=== PATIENT | female | born 1970 | race Caucasian/White ===

== ENCOUNTER 2025-06-16 09:15 | Outpatient (REF) | payer BC, SELFPAY ==
--- NOTE | ~2025-06-16 | XR_ITS ---
EXAMINATION: XR CHEST CLINICAL INFORMATION: R06.02 - Shortness of breath COMPARISON: None available. TECHNIQUE: 2 views of the chest were obtained. FINDINGS: The cardiomediastinal silhouette is within normal limits. The lungs are well expanded. There is no focal consolidation, edema, or effusion. No pneumothorax. Multilevel degenerative changes in the visualized spine. Metallic surgical clip in the right upper abdomen. XR/XR chest 2V IMPRESSION: No acute findings Electronically signed by: Peter Redding MD 06/16/2025 03:18 PM EST
== END 2025-06-16 09:16 | disposition home or self-care (01) ==
LOC: HO.XRAY 09:15
PROVIDERS: PCP Internal Medicine; Visit Provider Internal Medicine
DX: R06.02 Shortness of breath (principal); D50.9 Iron deficiency anemia, unspecified; I10 Essential (primary) hypertension; R73.01 Impaired fasting glucose; E78.5 Hyperlipidemia, unspecified; J38.6 Stenosis of larynx; Z79.890 Hormone replacement therapy; Z79.899 Other long term (current) drug therapy
CPT/HCPCS: 71046

== ENCOUNTER 2025-06-16 09:15 | Outpatient (AMB) | payer BC, SELFPAY ==
--- NOTE | 2025-06-16 09:16 | A.OFFPC_ITS ---
Vital Signs 06/16/25 09:18 Height 5 ft 0.5 in Weight 188 lb 4 oz BMI 36.2 BP 108/64 Blood Pressure Location Lt brachial Position Sitting Respiration 16 Pulse 71 Pulse Source Pulse Oximeter Temp 97.1 F Temp Source Temporal Artery Scan Pulse Oximetry (%) 97 Oxygen Delivery Method Room Air Intake Visit Reasons: re establish and sinus issues Glass Laminating Operator Required: No Accompanied by: Self / Same As Patient Allergies acetaminophen (From Percocet) Allergy (Intermediate, Verified 06/16/25 09:20) Rash celecoxib (From Celebrex) Allergy (Intermediate, Verified 06/16/25 09:20) Rash oxycodone (From Percocet) Allergy (Intermediate, Verified 06/16/25 09:20) Rash Penicillins Allergy (Intermediate, Verified 06/16/25 09:20) Rash shellfish derived (shellfish) Allergy (Intermediate, Verified 06/16/25 09:21) Rash Tetracyclines Allergy (Intermediate, Verified 06/16/25 09:20) ringing in ears Medication List - Last Reconciled 06/16/25 by Caity Mi MD atenolol 50 mg PO DAILY bupropion HCl XL 150 mg PO DAILY estradiol 1 patch transdermal 2XW fluoxetine 20 mg PO DAILY mupirocin 2% topical BID PRN progesterone micronized 200 mg PO DAILY simvastatin 20 mg PO BEDTIME triamcinolone acetonide 0.025% appl topical BID PRN Tobacco use date assessed: 06/16/25 Dental Screening Dental Screen Date: 06/16/25 Did you have a dental visit in the last 12 months?: Yes Did you have a dental problem in the last 6 months where you did not have access to dental care?: No Was dental information given to patient?: Patient has dentist HPI HPI Comments History of Present Illness Details The patient is a 55-year-old female presenting with shortness of breath and sinus congestion. Shortness of breath: Experiencing chest tightness and difficulty breathing since yesterday. Stress and caregiving have been noted as worsening factors. No fever present. Prednisone was previously prescribed by specialist at [facility] but . Pt has history of subglottic stenosis. Sinus congestion: Has colorful nasal discharge for one week. No fever or previous antibiotic treatment reported. Congestion affected the chest recently. Stress-related symptoms: Symptoms attributed to stress from 's surgery and work responsibilities. New work role adds to stress. 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 Reports increased breathlessness. Weekly PFT performed. Anemia- receives iron infusions at [facility]. HTN-stable Hyperlipidemia- on statin Impaired fasting glucose-due for repeat a1c Osteoarthritis of multiple joints including knee and shoulders- established at [facility], has received numerous steroid injections. Social History: - Stress related to caregiving and new w ork role - recovering from major surgery - Travel plans to [facility]. Diagnostic Results: - Pulmonary function tests are done week ly as part of the clinical trial. Notes some reduction recently. Review of Systems - Respiratory: Reports shortness of ludin th, tight chest. Denies fever. - ENT: Reports colorful nasal discharge, no improvement since onset. - Psychological: Reports stress related to 's health and new job role. Physical Exam - ENT- Uvula appears inflamed. -Respiratory- decreased breath sounds b ilaterally - Card: normal s1, s2, soft murmur acro ss precordium - Abd: SNTND, +BS - Extr: trace edema bilaterally Assessment and Plan 1. Shortness of breath - Prednisone taper prescribed by ENT at [facility] due to history of subglottic stenosis - Chest X-ray ordered r/o pneumonia 2. Sinus congestion - Azithromycin prescribed 3. Stress-related symptoms - Encourage stress management and therap y. 4. Clinical trial participation for Benny z - Continue and monitor symptoms. 5. HTN- continue current regimen 6. Hyperlipidemia- continue statin 7. Impaired fasting glucose- check a1c 8. Anemia- follow up with hematology Follow up as scheduled in 2-3 weeks Discussion Notes During the consultation, I discussed with the patient the likelihood of inflammation contributing to her respiratory symptoms and the use of a prednisone taper to mitigate this. We discussed prescription of zpack in the interim. We reviewed stress management strategies and the continuation of therapy for dealing with stress-related symptoms. Patient Instructions - Start prednisone taper as prescribed t o reduce inflammation. - Take antibiotics as directed - Get a chest X-ray done today. - Manage stress with therapy and relaxat ion techniques. - Continue Taltz injections as scheduled . - Follow up with any new or worsening sy mptoms. [facility] Medical History (Updated 06/16/25 @ 12:58 by Caity Mi MD) Impaired fasting glucose Iron deficiency anemia Shortness of breath Anxiety Depression Subglottic stenosis Hyperlipidemia, unspecified Primary hypertension Social History Housing: House Patient Tobacco Use Status: Never used Tobacco e-Cigarette/Vaping Use: Never Used service: No Current occupational status: employed Current occupation: credit/billing mgr Questionnaire AUDIT C Alcohol Use Questionnaire (AUDIT-C) 1. How often do you have a drink containing alcohol?: Never Total Score: 0 Physical exam (Primary Care) Vital Signs: Last Vital Signs Temp 97.1 F 06/16/25 09:18 Pulse 71 06/16/25 09:18 Resp 16 06/16/25 09:18 BP 108/64 06/16/25 09:18 Pulse Ox 97 06/16/25 09:18 Oxygen Delivery Method Room Air 06/16/25 09:18 BMI result Body Mass Index 36.2 Tobacco/Smoking Status: Tobacco use Status Tobacco use date assessed 06/16/25 06/16/25 09:20 Patient Tobacco Use Status Never used Tobacco 06/16/25 09:25 e-Cigarette/Vaping Use Never Used 06/16/25 09:25 Coding Level of Care Code Est Pt Level 4 (74145) Complex EM visit Add On G2211 Diagnoses Shortness of breath R06.02 Iron deficiency anemia, unspecified iron deficiency anemia type D50.9 Iron deficiency anemia type: unspecified iron deficiency Primary hypertension I10 Impaired fasting glucose R73.01 Hyperlipidemia, unspecified hyperlipidemia type E78.5 Hyperlipidemia type: unspecified Subglottic stenosis J38.6 Assessment & Plan Assessment & Plan (1) Shortness of breath: Code(s): R06.02 - Shortness of breath Category: Medical (2) Iron deficiency anemia: Code(s): D50.9 - Iron deficiency anemia, unspecified Category: Medical Qualifiers: Iron deficiency anemia type: unspecified iron deficiency Qualified Code(s): D50.9 - Iron deficiency anemia, unspecified (3) Primary hypertension: Code(s): I10 - Essential (primary) hypertension Category: Medical (4) Impaired fasting glucose: Code(s): R73.01 - Impaired fasting glucose Category: Medical (5) Hyperlipidemia, unspecified: Code(s): E78.5 - Hyperlipidemia, unspecified Category: Medical Qualifiers: Hyperlipidemia type: unspecified Qualified Code(s): E78.5 - Hyperlipidemia, unspecified (6) Subglottic stenosis: Code(s): J38.6 - Stenosis of larynx Category: Medical Plan: follow up with specialist at [facility] and continue clinical trial Plan - Take prednisone taper for inflammation. - z pack prescribed - Follow up with ENT at [facility] since high risk due to history of subglottic stenosis. - Order chest X-ray. - Encourage stress management. - Continue Taltz injections. Orders: Orders Complete Blood Count Auto Diff Today D50.9 - Iron deficiency anemia, unspecified Hemoglobin A1c Today E78.5 - Hyperlipidemia, unspecified, I10 - Essential (primary) hypertension, R73.01 - Impaired fasting glucose XR chest 2V Today R06.02 - Shortness of breath Comprehensive Met. Panel Today I10 - Essential (primary) hypertension, R73.01 - Impaired fasting glucose Medications: New ixekizumab (Taltz Syringe) 80 mg subcut Q4W azithromycin For 250 mg dose pack: take 500 mg today (day 1), then 250 mg for 4 days (days 2-5) PO 6 tabs 0RF Patient Instructions: - Take prednisone taper for inflammation. - z pack prescribed - Follow up with ENT at [facility] since high risk due to history of subglottic stenosis. - Order chest X-ray. - Encourage stress management. - Continue Taltz injections.
[2025-06-16 09:18] VITALS: BP 108/64; PULSE 71; RESP 16; TEMP 36.2; O2SAT 97; BMI 36.2
--- OUTSIDE RECORDS SUMMARY | 2025-06-16 10:24 | XMS_ITS ---
Author Name [facility] Organization Unknown Results Test Name/Text Value Interpretation Date Range Source HCO3 SerPl-sCnc 24.0 mmol/L Normal 03/23/2024 20 - 30 [facility] Chloride SerPl-sCnc 105.0 mmol/L Normal 03/23/2024 98 - 1 07 [facility] Creat SerPl-mCnc 0.84 mg/dL Normal 03/23/2024 0.4 - 1.3 [facility] Sodium SerPl-sCnc 141.0 mmol/L Normal 03/23/2024 136 - 14 4 [facility] BUN/Creat SerPl 16.7 Normal 03/23/2024 8 - 23 [facility] Anion Gap3 SerPl-sCnc 12.0 Normal 03/23/2024 7 - 17 [facility] Calcium SerPl-mCnc 9.3 mg/dL Normal 03/23/2024 8.8 - 10.2 [facility] Glucose SerPl-mCnc 97.0 mg/dL Normal 03/23/2024 70 - 100 [facility] GFR/BSA.pred SerPlBld WRZ-JET-GwVGuq >60.0 mL/min/1.73m2 Normal 03/23/2024 - [facility] Potassium SerPl-sCnc 3.4 mmol/L Normal 03/23/2024 3.3 - 5 .3 [facility] BUN SerPl-mCnc 14.0 mg/dL Normal 03/23/2024 6 - 20 [facility] Encounters Encounter Type Encounter Reason Primary Diagnosis Location Date Ambulatory Stenosis of larynx Stenosis of larynx [facility] 07/06/2024 Ambulatory Stenosis of larynx Stenosis of larynx [facility] 03/23/2024 Ambulatory Stenosis of larynx Stenosis of larynx [facility] 06/10/2023 Ambulatory Stenosis of larynx [facility] 02/18/2023 Ambulatory Stenosis of larynx [facility] 11/26/2022 Ambulatory Stenosis of larynx [facility] 11/19/2022 Ambulatory Stenosis of larynx [facility] 04/30/2022 Ambulatory Stenosis of larynx [facility] 02/12/2022 Ambulatory Stenosis of larynx [facility] 09/04/2021 Ambulatory Stenosis of larynx [facility] 06/05/2021 Care Team Organization Name Specialty Phone Email Start Date End Da te [facility] MAGDIEL DE LEON Primary [facility] 11/19/20222024 [facility] MAGDIELVICKY DE LEON Primary Care 06/05/20212021
--- OUTSIDE RECORDS SUMMARY | 2025-06-16 10:24 | XMS_ITS | Encounter Summary ---
Author Organization [facility] Address [address] [place] [id number] Care Team Providers Care Circular Clerk Name Role Phone Caity Mi MD Primary Care Provider +1- [phone] Reason for Visit * Reason Onset Date Comments Medication Refill 06/15/2025 Encounter Details Date Type Department Care Team (Late st Contact Info) Description 06/15/2025 Refill [facility] Ot[facility] at [address] [place] [address] Avelina Garay MD [address] [place] [phone] Medication Refill Social History Tobacco Use Types Packs/Day Years Used Date Smoking Tobacco: Never Smokeless Tobacco: Never Alcohol Use Standard Drinks/Week Comments Never 0 (1 standard drink = 0.6 oz pur e alcohol) Interpersonal Safety Answer Date Record ed Is there anyone in your life that is hurting or threatening you in anyway? no 07/06/2024 Physical Indicators of Abuse No evidence of phys ical abuse 07/06/2024 Comments Unknown Sex and Gender Information Value Date Recorded Sex Assigned at Female 05/20/2021 1:12 PM EDT Legal Sex Female 7:52 AM EDT Gender Identity Female 05/20/2021 1:12 PM EDT Sexual Orientation Straight 05/20/2021 1: 12 PM EDT documented as of this encounter Plan of Treatment Upcoming Encounters Date Type Department Care Team (Late st Contact Info) Description 07/27/2025 11:00 AM EST Office Visit Otolaryngology at [address] [place] [address] [address] [place] [address] Avelina Garay MD 800 [facility] 4 [place] [address] 10/19/2025 11:00 AM EDT Office Visit Otolaryngology at 800 [facility] 800 [facility] 4th [place] [address] Avelina Garay MD 800 [facility] 4 [place] [phone] documented as of this encounter Visit Diagnoses Diagnosis Idiopathic subglottic tracheal stenosis documented in this encounter Care Teams Circular Clerk Relationship Specialty Start Date End Date Caity Mi MD [address] [phone] PCP - General Internal Medicine 03/27/21 documented as of this encounter
--- OUTSIDE RECORDS SUMMARY | 2025-06-16 10:24 | XMS_ITS | Encounter Summary ---
Author Organization [facility] Address [address] [place] [phone] Care Team Providers Care Mender Knit Goods Name Role Phone Caity Mi MD Primary Care Provider +1- [phone] Encounter Details Date Type Department Care Team (Late Contact Info) Description 05/03/2025 Orders Only [facility] ONC REFERRAL SPECIALIST [address] [place] [phone] Minerva Alexis, PatrickD Social History Tobacco Use Types Packs/Day Years [...] Encounters Date Type Department Care Team (Late Contact Info) Description 07/27/2025 11:00 AM EST Office Visit Otolaryngology at [address] [address] Avelina Garay MD [address] [place] [phone] 10/19/2025 11:00 AM EDT Office Visit [facility] at 800 [facility] 800 [facility] 4th Floor [place], [place] [address] Avelina Garay MD [address] [place] [phone] documented as of this encounter Visit Diagnoses Not on filedocumented in this encounter Care Teams Mender Knit Goods Relationship Specialty Start Date End Date Caity Mi MD [address] [phone] PCP - General Internal Medicine 03/27/21 documented as of this encounter
--- OUTSIDE RECORDS SUMMARY | 2025-06-16 10:24 | XMS_ITS | Encounter Summary ---
Author Organization [facility] Address [address] [place] [phone] Care Team Providers Care Meals On Wheels Driver Name Role Phone Caity Mi MD Primary Care Provider +1- [phone] Encounter Details Date Type Department Care Team (Late Contact Info) Description 07/16/2021 Scanned Document Otolaryngology at [address] [place] [address] Avelina Garay MD [address] [place] [phone] Social History Tobacco Use Types Packs/Day Years Used Date Smoking Tobacco: Never Smokeless Tobacco: Never Alcohol Use Standard Drinks/Week Comments Never 0 (1 standard drink = 0.6 oz pur e alcohol) Comments Unknown Sex and Gender Information Value [...] 11:00 AM EST Office Visit Otolaryngology at [address] [place] [address] Avelina Garay MD [address] [place] [phone] 10/19/2025 11:00 AM EDT Office Visit [facility] at [address] [facility] [address] [facility] 4th [place] [address] Avelina Garay MD [address] [place] [phone] documented as of this encounter Visit Diagnoses Not on filedocumented in this encounter Care Teams Meals On Wheels Driver Relationship Specialty Start Date End Date Caity Mi MD [address] [phone] PCP - General Internal Medicine 03/27/21 documented as of this encounter
--- OUTSIDE RECORDS SUMMARY | 2025-06-16 10:24 | XMS_ITS | Clinical Summary ---
Author Organization [facility] [address] [facility] Address 20 [place] [address] Phone Care Team Providers Care Thoroughbred Horse Farm Manager Name Role Phone Caity Mi MD Primary Care Provider +1- [phone] Allergies Active Allergy Reactions Criticality Noted Date Comments Amoxicillin Itching,Rash Low 05/21/2021 Celecoxib Itching,Rash Low 05/21/2021 Citalopram Tinnitus Low 06/04/2021 Oxycodone Itching Low 03/16/2024 Penicillin Itching,Rash Low 06/04/2021 Sertraline Tinnitus Low 08/29/2021 Shellfish Containing Products Rash Low 2021 Tetracycline Tinnitus Low 05/21/2021 Medications atenoloL (TENORMIN) 50 mg tablet Take 2 tablets (100 mg total) by mouth every morning. Active buPROPion SR (WELLBUTRIN SR) 150 mg 12 hr tablet Take 1 tablet (150 mg total) by mouth every evening. Active FLUoxetine 20 mg tablet Take 1 tablet (20 mg total) by mouth every evening. Active lisinopriL (PRINIVIL,ZESTR IL) 5 mg tablet Take 1 tablet (5 mg total) by mouth every evening. Active furosemide (LASIX) 20 mg tablet Take 1 tablet (20 mg total) by mouth every morning. Active simvastatin (ZOCOR) 10 mg tablet Take 1 tablet (10 mg total) by mouth nightly. Active progesterone (PROMETRIUM) 100 mg capsule Take 1 capsule (100 mg total) by mouth every evening. Active estradiol (MINIVELLE) 0.05 mg/[address] 1 patch (0.05 mg total) onto the skin twice a week. Active acetaminophen (TYLENOL) 500 mg tablet Take 1-2 tablets (500-1,000 mg total) by mouth every 6 (six) hours as needed. Do not exceed 3,000mg over 24 hours. 60 tablet 3 Active ibuprofen (ADVIL,MOTRIN) 600 mg tablet Take 1 tablet (600 mg total) by mouth every 6 (six) hours as needed. 60 tablet 3 Active predniSONE (DELTASONE) 10 mg tabletIndicatio ns:Idiopathic subglottic tracheal stenosis TAKE 4 TABLETS BY MOUTH EVERY DAY FOR 3 DAYS THEN 3 TABLETS A DAY FOR 3 DAYS THEN 2 TABLETS A DAY FOR 3 DAYS THEN 1 TABLET A DAY TILL FOLLOW UP. 100 tablet 5 Active predniSONE (DELTASONE) 10 mg tabletIndicatio ns:Idiopathic subglottic tracheal stenosis TAKE 4 TABLETS BY MOUTH EVERY DAY FOR 3 DAYS THEN 3 TABLETS A DAY FOR 3 DAYS THEN 2 TABLETS A DAY FOR 3 DAYS THEN 1 TABLET A DAY TILL FOLLOW UP. 100 tablet 4 06/15/20 25 Discontinu ed(!Reorde r (No Cancel Msg)) Active Problems Problem Noted Date Diagnosed Date Idiopathic subglottic tracheal stenosis 09/04/19 22 Encounters Date Type Department Care Team Description 06/15/2025 Refill Otolaryngology at [address] [place] [address] Avelina Garay MD Medication Refill 05/04/2025 11:00 AM EDT Office Visit Otolaryngology at [address] [place] [address] Avelina Garay MD Idiopathic subglottic tracheal stenosis (Primary Dx) 05/03/2025 Orders Only [facility] ONC DITCHING MACHINE OPERATOR 8 [address] [place] [address] Minerva Alexis, PharmD 05/03/2025 Orders Only Otolaryngology at [address] [place] [address], [place] [address] Avelina Garay MD from Last 3 Months Immunizations Immunization Administration Dates Next Due COVID-19 Vaccine - PFIZER 06/30/2021,10/24/2020, 10/04/2020 Influenza, trivalent, inject able, contains preservative 05/12/2022 Social History Tobacco Use Types Packs/Day Years Used Date Smoking Tobacco: Never Smokeless Tobacco: Never Tobacco Cessation:Counseling Given: Not Answered Alcohol Use Standard Drinks/Week Comments Never 0 [...] Orientation Straight 05/20/2021 1: 12 PM EDT Last Filed Vital Signs Vital Sign Reading Time Taken Comments Blood Pressure 162/82 05/04/2025 10:59 AM EDT Pulse 64 05/04/2025 10:59 AM EDT Temperature 36.7 C (98 F) 05/04/2025 10:59 AM EDT Respiratory Rate 14 07/06/2024 10:00 AM EST Oxygen Saturation 96% 05/04/2025 10:59 AM EDT Inhaled Oxygen Concentration - - Weight 83.5 kg (184 lb) 05/04/2025 10:59 AM EDT Height 154.9 cm (5' 1 ) 11/10/2024 11:32 AM EDT Body Mass Index 34.77 11/10/2024 11:32 AM EDT Plan of Treatment Upcoming Encounters Date Type Department Care Team (Late st Contact Info) Description 07/27/2025 11:00 AM EST Office Visit Otolaryngology at [address] [place] [address] [address] [place] [address] Avelina Garay MD [address] [place] [phone] 10/19/2025 11:00 AM EDT Office Visit Otolaryngology at 800 [facility] 800 [facility] 4th Floor [place] [address] Avelina Garay MD 800 [facility] [address] 4 [place] [phone] Health Maintenance Due Date Last Done Comments HIV screening 1983 Hepatitis C screening 01/26/1988 Cervical cancer screening 1991 Breast cancer screening 2010 Lipid disorder screening 2010 Colon cancer screening, Colonoscopy 2015 Pneumococcal Vaccine (50+ years) (2 of 2 - PCV) 01/26/2020 06/15/2017 Shingles vaccine (Shingrix) (1 of 2 - Shingrix (RZV) 2 Dose Standard Series) 01/26/2020 Tetanus adult (Td q 10,TDAP once) 03/05/2025 03/05/2015, 07/05/2003 Influenza vaccine 03/10/2025 05/23/2023, , 05/12/2021, Additional history exists Covid-19 vaccine series ( - 2024- season) 2025 05/23/2023, 06/30/2021, 10/24/2020, Additional history exists Diabetes screening 03/23/2027 03/23/2024 RSV Immunization (1 - 1-dose 75+ series) 2045 Pneumococcal Vaccine (2 - 49 years) Discontinued 06/15/2017 Meningococcal B Vaccine Aged Out No l onger eligible based on patient's age to complete this topic Meningococcal Vaccine Aged Out No doug lyudmila eligible based on patient's age to complete this topic Procedures Procedure Name Priority Date/Time Associated Diagnosis Comments BASIC METABOLIC PANEL Routine 03/23/2024 6:47 AM EDT from Last 3 Months or Most Recently Relevant to Health Maintenance Results * Basic metabolic panel (03/23/2024 6:47 AM EDT) Sodium 141 136 - 144 mmol/L 03/23/2024 7:31 AM EDT [facility] Potassium 3.4 3.3 - 5.3 mmol/L 03/23/2024 7:31 AM EDT [facility] Chloride 105 98 - 107 mmol/L 03/23/2024 7:31 AM EDT [facility] CO2 24 20 - 30 mmol/L 03/23/2024 7:31 AM EDT [facility] Anion Gap 12 7 - 17 03/23/2024 7:31 AM EDT [facility] Glucose 97 70 - 100 mg/dL 03/23/2024 7:31 AM EDT [facility] BUN 14 6 - 20 mg/dL 03/23/2024 7:31 AM EDT [facility] Creatinine 0.84 0.40 - 1.30 mg/dL 03/23/2024 7:31 AM EDT [facility] Calcium 9.3 8.8 - 10.2 mg/dL 03/23/2024 7:31 AM EDT [facility] BUN/Creatinine Ratio 16.7 8.0 - 23.0 03/23/2024 7:31 AM EDT [facility] eGFR (Creatinine) >60 >=60 mL/min/1.7 3m2 03/23/2024 7:31 AM EDT [facility] Comment: [facility] utilizes CKD-EPI Creatinine 2020 to report eGFR. Values < 60 mL/min/1.73 m2 may indicate CKD if present for more than three months AND creatinine is at steady state. The eGFR provides a rough estimate of kidney function. For further guidance, please refer to the CKD: Adult Supervisor Prep Signature pathway. Blood Venipuncture / Unknown 03/23/2024 6:47 AM EDT 03/23/2024 7:13 AM EDT us Isabel Carvajal [facility] LAB BLOOD ORDERABLES Fin al Result [facility] [address] [place] [address] from Last 3 Months or Most Recently Relevant to Health Maintenance Insurance BS BS BS Care Teams Thoroughbred Horse Farm Manager Relationship Specialty Start Date End Date Caity Mi MD [address] [phone] PCP - General Internal Medicine 03/27/21
--- OUTSIDE RECORDS SUMMARY | 2025-06-16 10:24 | XMS_ITS | Patient Health Record ---
Author Organization [facility] Address [address] [place] [address] Care Team Providers Care Technology Auditor Name Role Phone Shmuel, Caity Primary Care Provider Densia Farris Unavailable [phone] Allergies Allergen (clinical drug ingredient) Drug/Non Drug Allergy documented on EMR Reaction Allergy Type Onset Date Status amoxicillin Amoxicillin Unknown Drug Allergy Act nikko celecoxib Celebrex Unknown Drug Allergy Active Shellfish (FN) Shellfish-derived Products Unknown Drug Allergy Active Reason For Referral No Information Medications Medication SIG (Take, Route, Frequency, Duration) Notes Start Date End Date Status Lisinopril 5 MG Orally Acti ve FLUoxetine HCl 10 MG TAKE 1 TABLET BY MO UTH EVERY DAY Oral; Duration: 30 Not-Taking buPROPion HCl ER (XL) 150 MG TAKE 1 TABLET BY MOUTH EVERY 24 HOURS Oral; Duration: 30 Active Flovent HFA 220 MCG/ACT INHALE 2 PUFFS B Y MOUTH TWICE A DAY Inhalation; Duration: 30 Not-Taking ProAir HFA 108 (90 Base) MCG/ACT INHALE 2 PUFFS 4 TIMES A DAY NEEDED FOR WHEEZING. Inhalation; Duration: 25 Not-Taking Albuterol Sulfate (2.5 MG/3ML) 0.083% USE 1 VIAL VIA NEBULIZER EVERY 6 HOURS NEEDED FOR WHEEZING Inhalation; Duration: 30 Not-Taking PROzac 10 MG 1 capsule Orally Onc e a day; Duration: 30 day(s) Active metroNIDAZOLE 0.75 % APPLY TOPICALLY IN THE MORNING FOR REDNESS CHEEKS External; Duration: 30 Not-Taking Singulair 10 MG 1 tablet Orally Once a day; Duration: 30 day(s) Not-Taking Ipratropium-Albuterol 0.5-2.5 (3) MG/3ML USE ONE VIAL VIA NEBULIZER 4 TIMES A DAY NEEDED FOR WHEEZING/SHORTNESS OF BREATH Inhalation; Duration: 30 Not-Taking Night Splint AFO - L1930 as directed 12/08/2016 Not-Taking Clindamycin Phosphate 1 % APPLY DAILY TW ICE A DAY NEEDED FOR FLARES OF FOLLICULITIS External; Duration: 30 Not-Taking Vitamin D (Ergocalciferol) 1.25 MG (77550 UT) 1 capsule Orally weekly Not- Taking Breo Ellipta 200-25 MCG/INH 1 puff Inhalation Once a day Not-Taking zzzWalking Boot/ Pneumatic . As directed Wear Daily; Duration: Until further notice Not-Taking Simvastatin Active Medrol 4 MG as directed Orally 06/21/2019 Not-Taking Metoprolol Succinate ER 50 MG TAKE 1 TABLET BY MOUTH 2 TIMES A DAY Oral; Duration: 30 Not-Taking Atenolol 50 MG 1 tablet Orally Once a day Active Metoprolol Succinate Not-Taking Lasix Active D3-50 Not-Taking Immunizations Vaccine Route Administration Date Status Comme nts COVID-19 Pfizer BioNTech Vaccine Unknown 06/30/2021 Administered First Dose:10/04/2020 Second Dose:10/24/2020 Social History Tobacco Use: Social History Observation Description Date Details (start date - stop date) Never Smoker NA - NA Tobacco Use/Smoking Question Answer Notes Are you a: nonsmoker Additional Findings: Tobacco Non-User Current no n-smoker Alcohol Screen Question Answer Notes Did you have a drink containing alcohol in the p ast year? No Points 0 Interpretation Negative Tobacco use other than smoking: Question Answer Notes Are you an other tobacco user? 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 Plan Of Treatment Pending Test Test Name Order Date MRI : Ankle, left 07/15/2019 MRI : Foot, right 01/12/2017 X ray : Foot, left 2V 07/15/2019 X ray : Foot, left 3V 06/21/2019 X ray : Foot, left 3V 12/23/2022 X ray : Foot, left 3V 03/26/2023 X ray : Foot, right 3V 09/15/2016 X ray : Foot, right 3V 09/20/2021 X ray : Foot, right 3V 10/11/2021, J0702- INJECT TENDON ORIGIN/INSER T 12/23/2022, E8334-QIPET/INJECT, JOINT/BURSA 0 10/11/[id number],E1635-MJD TENDON SHEATH/LIGAMENT 1 09/29/2018 Insurance Providers Payer Name Payer Address Payer Phone Subscriber Number Group Number Insured Name Patient Relationship to Insured Coverage Start Date Coverage End Date [facility] [address] [place] [address] [id number] Nicholas Vaughn Spouse - patient is the spouse of the insured 7 Medical (General) History Medical History History ICD Code Heart disease High blood pressure Measles Mumps Chicken pox subglottis stenosis Surgical History Surgery Date(Month/Year) gall bladder 1997 d&c 2010 bunion appendectomy 12/2015 Dialation- to help breathing 09/06/2020 Bronchial Dialation - to help breathing 11/26/22 Bronchial Dialation - to help breathing 02/25/2023 Hospitalization History Reason Date(Month/Year) ER visit to [facility] for Kidney Stone 08/15
== END 2025-06-16 10:08 | disposition home or self-care (01) ==
LOC: HO.HMCHD 09:15
PROVIDERS: PCP Internal Medicine; Visit Provider Internal Medicine
DX: R06.02 Shortness of breath (principal); D50.9 Iron deficiency anemia, unspecified; I10 Essential (primary) hypertension; R73.01 Impaired fasting glucose; E78.5 Hyperlipidemia, unspecified; J38.6 Stenosis of larynx

== ENCOUNTER 2025-06-16 10:09 | Outpatient (REF) | payer BC, SELFPAY ==
[2025-06-16 10:33] LABS: MANUAL DIFF FLAG NO
[2025-06-16 10:48] LABS: Alanine Aminotransferase 16 U/L (0-31); Albumin Level 4.3 g/dL (3.5-5.0); Alkaline Phosphatase 65 U/L (39-117); Anion Gap 11 (12-20); Aspartate Amino Transferase 16 U/L (5-31); Blood Urea Nitrogen 18 mg/dL (9-16); Calcium 9.1 mg/dL (8.4-10.2); Carbon Dioxide 27 mmol/L (22-29); Chloride 104 mmol/L (96-108); Estimated Glomerular Filt Rate > 60; Potassium 4.1 mmol/L (3.3-5.1); Sodium 138 mmol/L (135-145); Total Protein 7.8 g/dL (6.5-8.0)
[2025-06-16 10:50] LABS: Hematocrit 40.8 % (37.0-47.0); Hemoglobin 12.9 g/dl (12.0-16.0); Imm Gran Abs Auto 0.14 X10*3/uL (0.00-0.03); Imm Gran Pct Auto 1.0 % (0.0-0.4); Lymphocytes Absolute Auto 1.9 X10*3/uL (1.2-4.9); Mean Corpuscular HGB Conc 31.6 g/dl (31.0-35.0); Mean Corpuscular Hemoglobin 28.8 pg (27.0-33.0); Mean Corpuscular Volume 91.1 fL (80.0-98.0); NRBC Abs Auto 0.000 X10*3/uL (0.0-0.012); NRBC Pct Auto 0.0 /100WBC (0.0-0.2); Platelet Count 436 X10*3/uL (160-400); Red Blood Count 4.48 X10*6/uL (4.20-5.50); White Blood Count 13.8 X10*3/uL (4.8-10.8)
== END 2025-06-16 10:10 | disposition home or self-care (01) ==
LOC: HO.10HDL 10:09
PROVIDERS: Visit Provider Internal Medicine
DX: I10 Essential (primary) hypertension (principal); D50.9 Iron deficiency anemia, unspecified; E78.5 Hyperlipidemia, unspecified; R73.01 Impaired fasting glucose
CPT/HCPCS: 36415; 80053; 83036; 85025

== ENCOUNTER → 2025-06-16 10:25 | Outpatient (BNV) | payer BC, SELFPAY | PROVIDERS: PCP Internal Medicine; Visit Provider Radiology Diagnostic Ultrasound | DX: R06.02 Shortness of breath (principal) | CPT/HCPCS: 71046 ==

== ENCOUNTER 2025-07-14 10:47 | Outpatient (AMB) | payer BC, SELFPAY ==
--- NOTE | 2025-07-14 10:51 | A.OFFPC_ITS ---
Vital Signs 07/14/25 10:52 Height 5 ft 0.5 in Weight 194 lb BMI 37.3 BP 112/80 Blood Pressure Location Lt brachial Position Sitting Respiration 16 Pulse 66 Pulse Source Pulse Oximeter Temp 96.8 F Temp Source Temporal Artery Scan Pulse Oximetry (%) 97 Oxygen Delivery Method Room Air Intake Visit Reasons: follow up , former pt, r/s 07/05/25 - see comments Bed Machine Operator Required: No Accompanied by: Self / Same As Patient Allergies acetaminophen (From Percocet) Allergy (Intermediate, Verified 07/14/25 10:52) Rash celecoxib (From Celebrex) Allergy (Intermediate, Verified 07/14/25 10:52) Rash oxycodone (From Percocet) Allergy (Intermediate, Verified 07/14/25 10:52) Rash Penicillins Allergy (Intermediate, Verified 07/14/25 10:52) Rash shellfish derived (shellfish) Allergy (Intermediate, Verified 07/14/25 10:52) Rash Tetracyclines Allergy (Intermediate, Verified 07/14/25 10:52) ringing in ears Medication List - Last Reconciled 07/14/25 by Caity Mi MD atenolol 50 mg PO DAILY bupropion HCl XL 150 mg PO DAILY cyanocobalamin (vitamin B-12) 1,000 mcg sublingual DAILY estradiol 1 patch transdermal 2XW fluoxetine 20 mg PO DAILY ixekizumab (Taltz Syringe) 80 mg subcut Q4W meloxicam 15 mg PO DAILY PRN mupirocin 2% topical BID PRN progesterone micronized 200 mg PO DAILY simvastatin 20 mg PO BEDTIME triamcinolone acetonide 0.025% appl topical BID PRN Tobacco use date assessed: 06/16/25 Dental Screening Dental Screen Date: 06/16/25 HPI HPI Comments History of Present Illness Details The patient is a 55 year old female presenting for a follow-up visit for management of chronic conditions. 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 The procedure utilized jet ventilation, and she reports a big difference after being opened up. She was nearly a year out from her prior surgery, which is the longest interval she has had between procedures. She participates in a clinical trial for her condition which ends in October. Her specialist is based at [place]. Left Knee Osteoarthritis: The patient reports a recent increase in left knee pain, which she describes as massive pain and has been taking meloxicam daily for it since Thursday. She has a history of an MRI of the left knee in May, physical therapy, and two prior cortisone injections. Her insurance company denied a gel injection, stating it was not medically necessary. She has been told she will need a knee replacement at some point and is trying to prolong the time until surgery. Sleep disorder/BRIGIDO history: The patient reports her sleep is really weird and does not feel she is getting enough, leading to afternoon fatigue where she hits a plateau. She previously tried a CPAP machine before her subglottic stenosis diagnosis but felt it did nothing for her, and she felt claustrophobic. Hypokalemia: The patient had a recent hematology follow-up where blood work showed her potassium was low. She was prescribed potassium for a week and finished the course the day before yesterday. Care Team [facility] Medical History (Updated 07/14/25 @ 13:12 by Caity Mi MD) BRIGIDO (obstructive sleep apnea) Elevated white blood cell count Hypokalemia Impaired fasting glucose Iron deficiency anemia Shortness of breath Anxiety Depression Subglottic stenosis Hyperlipidemia, unspecified Primary hypertension Surgical History (Updated 07/14/25 @ 11:32 by Caity Mi MD) History of bunionectomy H/O dilation and curettage Hx of cholecystectomy Family History (Updated 07/14/25 @ 11:33 by Caity Mi MD) Other Diabetes mellitus Mixed hyperlipidemia Primary hypertension Uterine cancer Social History Housing: House Patient Tobacco Use Status: Never used Tobacco e-Cigarette/Vaping Use: Never Used service: No Current occupational status: employed Current occupation: credit/billing mgr Questionnaire PHQ-9 Over the last 2 weeks, how often have you been bothered by any of the following problems? 1. Little interest or pleasure in doing things: several days 2. Feeling down, depressed, or hopeless: several days 3. Trouble falling or staying asleep, or sleeping too much: more than half the days 4. Feeling tired or having little energy: several days 5. Poor appetite or overeating: several days 6. Feeling bad about yourself - or that you are a failure or have let yourself or your family down: not at all 7. Trouble concentrating on things, such as reading the newspaper or watching television: several days 8. Moving or speaking so slowly that other people could have noticed. Or the opposite - being so fidgety or restless that you have been moving around a lot more than usual: not at all 9. Thoughts that you would be better off or of hurting yourself in some way: not at all Total score: 7 Depression Screening Interpretation: Positive Depression Screening Done: Yes 15600 - PHQ-9 Billing: Yes Source: Developed by Drs. Nicholas Sewell, Elizabeth Zimmerman, Jam Bocanegra and colleagues, with an educational suzanne from [employer]. AUDIT C Alcohol Use Questionnaire (AUDIT-C) 1. How often do you have a drink containing alcohol?: Never 3. How often do you have six or more drinks on one occasion?: Never Total Score: 0 Review of Systems Narrative Review of Systems - Constitutional: Reports daytime fatigue and feeling tired. - Neurological: Reports poor sleep quality. - Musculoskeletal: Reports massive pain in the left knee. - Integumentary: Reports a prior leg biopsy site is still red and inflamed but has healed over. Physical exam (Primary Care) Vital Signs: Last Vital Signs Temp 96.8 F 07/14/25 10:52 Pulse 66 07/14/25 10:52 Resp 16 07/14/25 10:52 BP 112/80 07/14/25 10:52 Pulse Ox 97 07/14/25 10:52 Oxygen Delivery Method Room Air 07/14/25 10:52 BMI result Body Mass Index 37.3 Tobacco/Smoking Status: Tobacco use Status Tobacco use date assessed 06/16/25 07/14/25 10:58 Patient Tobacco Use Status Never used Tobacco 07/14/25 10:58 e-Cigarette/Vaping Use Never Used 07/14/25 10:58 PHQ-9: PHQ-9 Score PHQ-9: Total score 7 07/14/25 17:57 Depression Screening Interpretation: Positive Narrative Physical Exam - Vitals: Blood pressure is 112/80 mmHg. -Gen: NAD - HEENT: EOMI - Chest: CTABL - Card: normal s1, s12, soft murmur across precordium Coding Level of Care Code Est Pt Level 4 (38283) Complex visit Add On G2211 Diagnoses Hyperlipidemia, unspecified hyperlipidemia type E78.5 Hyperlipidemia type: unspecified Subglottic stenosis J38.6 Hypokalemia E87.6 Iron deficiency anemia, unspecified iron deficiency anemia type D50.9 Iron deficiency anemia type: unspecified iron deficiency Additional Codes PHQ-9 - 54159 - PHQ-9 Billing: Yes ([id number]) Assessment & Plan Assessment & Plan (1) Hyperlipidemia, unspecified: Code(s): E78.5 - Hyperlipidemia, unspecified Category: Medical Qualifiers: Hyperlipidemia type: unspecified Qualified Code(s): E78.5 - Hyperlipidemia, unspecified (2) Subglottic stenosis: Code(s): J38.6 - Stenosis of larynx Category: Medical (3) Hypokalemia: Code(s): E87.6 - Hypokalemia Category: Medical (4) Iron deficiency anemia: Code(s): D50.9 - Iron deficiency anemia, unspecified Category: Medical Qualifiers: Iron deficiency anemia type: unspecified iron deficiency Qualified Code(s): D50.9 - Iron deficiency anemia, unspecified Plan Assessment and Plan 1. Idiopathic subglottic stenosis - Patient is status post her 10th dilation and reports significant improvement. - She will continue her clinical trial follow-ups and follow up with her specialist, Dr. Garay, on the . 2. Left knee pain - Patient reports a flare of severe pain and is using meloxicam daily. - She will follow up with the orthopedic PA at the end of July to discuss further management, as gel injections were denied by her insurance. 3. Sleep disturbance/Fatigue - Patient reports feelings of fatigue and sleep that is not restful. - Given her prior unsuccessful trial of CPAP before her subglottic stenosis diagnosis, a repeat sleep study will be ordered to re-evaluate. 4. Hypokalemia - The patient recently completed a one-week course of potassium for a low level found on outside labs. - A lab order for a potassium and magnesium check will be done today to assess her current status. 5. Health Maintenance - Immunizations: The patient received a Tdap vaccine today. She was advised to get the Shingrix vaccine at a later date. - Colon Cancer Screening: Patient is due for Cologuard screening and has the kit at home. She will complete and return the test, was sent by her insurance company. 7. Follow-up - Patient will follow up in the spring for her annual physical, around December. Plan - Lab work ordered for today to check potassium and magnesium levels. - Order placed for iron studies to have on file. - A repeat sleep study will be ordered to evaluate for sleep apnea. - Tdap vaccine administered in office today. - Patient advised to obtain the Shingrix vaccine series at a pharmacy. - Patient instructed to complete the at-home Cologuard test and inform the office. - Patient to continue her current medication regimen. - Follow-up in 4 months for physical. Discussion Notes I discussed the plan to order a repeat sleep study to investigate her fatigue, as her prior trial of CPAP was before her subglottic stenosis was addressed and may not have been effective. We reviewed her need for colon cancer screening, and as she is due and already has a Cologuard kit, I instructed her to complete it. I will monitor her lab results and we will plan for a check-in and annual physical in the early spring, around December. Patient Instructions - Please go to the lab in our building today to have your blood drawn to check your potassium, magnesium, and iron levels. - You received a Tdap (tetanus, diphtheria, whooping cough) vaccine today. - We recommend you get the shingles vaccine. This is a two-shot series, with the second shot being 2 to 6 months after the first. - An order will be placed for you to have a repeat sleep study to look into your fatigue. - Please complete the Cologuard test for colon cancer screening that your insurance sent you. Let our office know when you have sent it in so we can track the results. - Continue taking your current medications as prescribed. Orders: Orders Potassium Today E87.6 - Hypokalemia Complete Blood Count Auto Diff Today D72.829 - Elevated white blood cell count, unspecified Magnesium Today E87.6 - Hypokalemia TDaP Immunization Today Z23 - Encounter for immunization LDL Cholesterol Direct Today E78.5 - Hyperlipidemia, unspecified Referrals Sleep Medicine Referral G47.33 - Obstructive sleep apnea (adult) (pediatric) Medications: New Boostrix Tdap (diphth,pertus(acell),tetanus) 0.5 mL IM ONCE 0.5 mL 0RF NS Z23 - Encounter for immunization
[2025-07-14 10:52] VITALS: BP 112/80; PULSE 66; RESP 16; TEMP 36; O2SAT 97; BMI 37.3
--- OUTSIDE RECORDS SUMMARY | 2025-07-14 13:16 | XMS_ITS | Clinical Summary ---
Author Organization [facility] [address] [facility] Address [address] [place] [address] Phone Care Team Providers Care Button Station Worker Name Role Phone Caity Mi MD Primary Care Provider [phone]- [phone] Allergies Active Allergy Reactions Criticality Noted Date Comments Amoxicillin Itching,Rash Low 05/21/2021 Celecoxib Itching,Rash Low 05/21/2021 Citalopram Tinnitus Low 06/04/2021 Oxycodone Itching Low 03/16/2024 Penicillin Itching,Rash Low 06/04/2021 Sertraline Tinnitus Low 08/29/2021 Shellfish Containing Products Rash Low 2021 Tetracycline Tinnitus Low 05/21/2021 Medications atenoloL (TENORMIN) 50 mg tablet Take 1 tablet (50 mg total) by mouth every morning. Active [...] TILL FOLLOW UP. 100 tablet 5 Active cyanocobalamin, vitamin B-12, (VITAMIN B-12 ORAL) Take by mouth daily. Active meloxicam (MOBIC) 15 mg tablet Take 1 tablet (15 mg total) by mouth daily. Active lisinopriL (PRINIVIL,ZESTR IL) 5 mg tablet Take 1 tablet (5 mg total) by mouth every evening. 06/26/20 25 Discontinu ed(Error) predniSONE (DELTASONE) 10 mg tabletIndicatio ns:Idiopathic subglottic [...] Encounters Date Type Department Care Team Description 06/28/2025 7:31 AM EST Anesthesia Event Perioperative Services EP [address] [place] [id number] Mani Burnette MD 06/28/2025 7:30 AM EST - 06/28/2025 8:33 AM EST Surgery Perioperative Services EP [address] [place] [address] Avelina Garay MD BRONCHOSCOPY WITH DILATION AND INJECTION OF STEROIDS 06/28/2025 5:46 AM EST - 06/28/2025 10:26 AM EST Hospital Encounter Perioperative Services EP [address] [place] [address] Avelina Garay MD Discharge Disposition: Home or Self Care 06/20/2025 8:00 AM EST Office Visit Otolaryngology at [address] [facility] [address] [address] Avelina Garay MD Idiopathic subglottic tracheal stenosis (Primary Dx) 06/20/2025 Telephone Otolaryngology at [address] [facility] [address] [address] Avelina Garay MD Other 06/15/2025 Refill Otolaryngology at [address] [facility] [address] [address] Avelina Garay MD Medication Refill 05/04/2025 11:00 AM EDT Office Visit Otolaryngology at [address] [facility] [address] [address] Avelina Garay MD Idiopathic subglottic tracheal stenosis (Primary Dx) 05/03/2025 Orders Only [facility] [address] [place] [address] Minerva Alexis, PharmD 05/03/2025 Orders Only Otolaryngology at [address] [place] [id number] Avelina Garay MD from Last 3 Months [...] is hurting or threatening you in anyway? Not on file 06/28/2025 Physical Indicators of Abuse No evidence of phys ical abuse 06/28/2025 Comments Unknown Sex and Gender Information Value Date Recorded Sex Assigned at Female 05/20/2021 1:12 PM EDT Legal Sex Female 7:52 AM EDT Gender Identity Female 05/20/2021 1:12 PM EDT Sexual Orientation Straight 05/20/2021 1: 12 PM EDT Last Filed Vital Signs Vital Sign Reading Time Taken Comments Blood Pressure 138/72 06/28/2025 9:45 AM EST Pulse 93 06/28/2025 9:45 AM EST Temperature 37.2 C (98.9 F) 06/28/2025 9:45 AM EST Respiratory Rate 16 06/28/2025 9:45 AM EST Oxygen Saturation 96% 06/28/2025 9:45 AM EST Inhaled Oxygen Concentration - - Weight 83.9 kg (185 lb) 06/28/2025 6:40 AM EST Height 152.4 cm (5') 06/28/2025 6:40 AM EST Body Mass Index 36.13 06/28/2025 6:40 AM EST Plan of Treatment Upcoming Encounters Date Type Department Care Team (Late st Contact Info) Description 07/27/2025 11:00 AM EST Office Visit Otolaryngology at [address] [place] [id number] Avelina Garay MD [address] [phone] 10/19/2025 11:00 AM EDT Office Visit Otolaryngology at [address] [place] [id number] Avelina Garay MD [address] [facility] [address] [phone] Health Maintenance Due Date Last Done Comments [...] Procedure Name Priority Date/Time Associated Diagnosis Comments ND BRONCHOSCOPY,TRAC H/BRONCH DILATN Low Risk 06/28/2025 7:35 AM EST Subglottic stenosis Case Notes REQ 1ST CASE, LENGTH OF SURGERY 1 HOUR Special Needs Wants to try Leica Microscope - alj POCT URINE Routine 06/28/2025 6:40 AM EST BASIC METABOLIC PANEL Routine 03/23/2024 6:47 AM EDT from Last 3 Months or Most Recently Relevant to Health Maintenance Results * urine (06/28/2025 6:40 AM EST) Preg Test, Ur, POC Negative Negative [facility] Line in Control Window? (+ Control) Yes [facility] Background Clear? (- Control) Yes [facility] Kit Lot Number [id number] [facility] Expiration Date 09/28/2026 [facility] Urine URINE SPECIMEN / Unknown 06/28/2025 6:40 AM EST Avelina Garay MD POINT OF CARE TEST RONI ANDERSON Final Result [facility] * Basic metabolic panel (03/23/2024 6:47 AM EDT) Sodium 141 136 - 144 mmol/L 03/23/2024 7:31 AM EDT [facility] Potassium 3.4 3.3 - 5.3 mmol/L 03/23/2024 7:31 AM EDT [facility] Chloride 105 98 - 107 mmol/L 03/23/2024 7:31 AM EDT [facility] CO2 24 20 - 30 mmol/L 03/23/2024 7:31 AM EDT [facility] Anion Gap 12 7 - 17 03/23/2024 7:31 AM EDT [facility] Glucose 97 70 - 100 mg/dL 03/23/2024 7:31 AM EDT [facility] BUN 14 6 - 20 mg/dL 03/23/2024 7:31 AM EDT [facility] Creatinine 0.84 0.40 - 1.30 mg/dL 03/23/2024 7:31 AM EDT [facility] Calcium 9.3 8.8 - 10.2 mg/dL 03/23/2024 7:31 AM EDT [facility] BUN/Creatinine Ratio 16.7 8.0 - 23.0 03/23/2024 7:31 AM EDT [facility] eGFR (Creatinine) >60 >=60 mL/min/1.7 3m2 03/23/2024 7:31 AM EDT [facility] Comment: [facility] utilizes CKD-EPI Creatinine 2020 to report eGFR. Values < 60 mL/min/1.73 m2 may indicate CKD if present for more than three months AND creatinine is at steady state. The eGFR provides a rough estimate of kidney function. For further guidance, please refer to the CKD: Adult Gear Nicker Signature pathway. Blood Venipuncture / Unknown 03/23/2024 6:47 AM EDT 03/23/2024 7:13 AM EDT Isabel Carvajal [employer] LAB BLOOD ORDERABLES Fin al Result Performing Organization Address City/State/[facility] Co de Phone Number [facility] [address] [place], [place] [id number], [facility] [phone] from Last 3 Months or Most Recently Relevant to Health Maintenance Insurance [facility] BCBS Care Teams Button Station Worker Relationship Specialty Start Date End Date Caity Mi MD [address] [address] PCP - General Internal Medicine 03/27/21
--- OUTSIDE RECORDS SUMMARY | 2025-07-14 13:16 | XMS_ITS | Encounter Summary ---
Author Organization [facility] and [facility] Address [address] [place] [phone] Care Team Providers Care Tying Machine Operator Lumber Name Role Phone Caity Mi MD Primary Care Provider [phone]- [phone] Encounter Details Date Type Department Care Team (Late Contact Info) Description 07/16/2021 Scanned Document Otolaryngology at [address] [place] [id number] Avelina Garay MD [address] [place] [phone] Social History Tobacco Use Types Packs/Day [...] 11:00 AM EST Office Visit Otolaryngology at [address] [place] [phone] Avelina Garay MD [address] [address] [place] [address] 10/19/2025 11:00 AM EDT Office Visit [facility] at [address] [facility] [address] [facility] 4th [place] [address] Avelina Garay MD [address] [employer] [address] [place] [phone] documented as of this encounter Visit Diagnoses Not on filedocumented in this encounter Care Teams Tying Machine Operator Lumber Relationship Specialty Start Date End Date Caity Mi MD [address] [phone] PCP - General Internal Medicine 03/27/21 documented as of this encounter
--- OUTSIDE RECORDS SUMMARY | 2025-07-14 13:16 | XMS_ITS | Encounter Summary ---
Author Organization [facility] and [facility] Address [address] [place] [phone] Care Team Providers Care Senior Research Executive Name Role Phone Caity Mi MD Primary Care Provider [phone]- [phone] Encounter Details Date Type Department Care Team (Late Contact Info) Description 05/03/2025 Orders Only [facility] PULLER OVER HAND [address] [place] [id number] Minerva Alexis, PatrickD Social History Tobacco Use [...] AM EST Office Visit Otolaryngology at [address] [address] Avelina Garay MD [address] [place] [phone] 10/19/2025 11:00 AM EDT Office Visit [facility] Otolaryngology at [address] [facility] [address] [facility] 4th Floor [place], [place] [phone] Avelina Garay MD [address] [place] [phone] documented as of this encounter Visit Diagnoses Not on filedocumented in this encounter Care Teams Senior Research Executive Relationship Specialty Start Date End Date Caity Mi MD [address] [phone] PCP - General Internal Medicine 03/27/21 documented as of this encounter
== END 2025-07-14 11:45 | disposition home or self-care (01) ==
LOC: HO.HMCHD 10:48
PROVIDERS: PCP Internal Medicine; Visit Provider Internal Medicine
DX: E78.5 Hyperlipidemia, unspecified (principal); J38.6 Stenosis of larynx; E87.6 Hypokalemia; D50.9 Iron deficiency anemia, unspecified

== ENCOUNTER → 2025-07-14 10:47 | Outpatient (BNVA) | payer BC, SELFPAY | PROVIDERS: PCP Internal Medicine; Visit Provider Internal Medicine | DX: E78.5 Hyperlipidemia, unspecified (principal); J38.6 Stenosis of larynx; E87.6 Hypokalemia; D50.9 Iron deficiency anemia, unspecified | CPT/HCPCS: 96127 ==

== ENCOUNTER 2025-07-14 11:46 | Outpatient (REF) | payer BC, SELFPAY ==
[2025-07-14 13:06] LABS: MANUAL DIFF FLAG NO
[2025-07-14 13:32] LABS: Hematocrit 36.4 % (37.0-47.0); Hemoglobin 11.1 g/dl (12.0-16.0); Imm Gran Abs Auto 0.08 X10*3/uL (0.00-0.03); Imm Gran Pct Auto 0.8 % (0.0-0.4); Lymphocytes Absolute Auto 1.5 X10*3/uL (1.2-4.9); Mean Corpuscular HGB Conc 30.5 g/dl (31.0-35.0); Mean Corpuscular Hemoglobin 28.8 pg (27.0-33.0); Mean Corpuscular Volume 94.5 fL (80.0-98.0); NRBC Abs Auto 0.000 X10*3/uL (0.0-0.012); NRBC Pct Auto 0.0 /100WBC (0.0-0.2); Platelet Count 376 X10*3/uL (160-400); Red Blood Count 3.85 X10*6/uL (4.20-5.50); White Blood Count 10.3 X10*3/uL (4.8-10.8)
[2025-07-14 14:01] LABS: Magnesium 2.2 mg/dL (1.6-2.6); Potassium 3.7 mmol/L (3.3-5.1)
== END 2025-07-14 11:47 | disposition home or self-care (01) ==
LOC: HO.10HDL 11:46
PROVIDERS: Visit Provider Internal Medicine
DX: E87.6 Hypokalemia (principal); D72.829 Elevated white blood cell count, unspecified; E78.5 Hyperlipidemia, unspecified
CPT/HCPCS: 36415; 83721; 83735; 84132; 85025

== ENCOUNTER 2025-07-21 07:33 | Outpatient (REF) | payer BC, SELFPAY ==
[2025-07-21 09:48] LABS: Ferritin 228 ng/mL (10-250); Iron 48 mcg/dL (30-160); Percent Iron Saturation 18 % (15-50); Total Iron Binding Capacity 271 mcg/dL (228-428); Unsaturated Iron Binding 223 ug/dL
== END 2025-07-21 07:34 | disposition home or self-care (01) ==
LOC: HO.LAB 07:33
PROVIDERS: PCP Internal Medicine; Visit Provider Internal Medicine
DX: D50.9 Iron deficiency anemia, unspecified (principal)
CPT/HCPCS: 36415; 82728; 83540